=== PATIENT | male | born 1980 | race Caucasian/White ===

== ENCOUNTER 2018-10-01 17:18 | Emergency (ER) | payer SELFPAY ==
[~2018-10-01] VITALS: Ht 175.3 cm; Wt 113.6 kg
[2018-10-01 17:23] VITALS: Ht 175.3 cm; Wt 113.6 kg
[2018-10-01] MEDS ORDERED: OMEPRAZOLE20 M1 PO (19:01)
[2018-10-01] MEDS ORDERED: ZANAFLEX4 MG PO (19:01)
[2018-10-01] MEDS ORDERED: VOLTAREN75 MG PO (19:01)
[2018-10-01 19:17] VITALS: BP 133/79
== END 2018-10-01 19:17 | disposition home or self-care (01) ==
LOC: D.ER 17:18
DX: M54.9 Dorsalgia, unspecified (principal); X50.0XXA Overexertion from strenuous movement or load, initial encounter